=== PATIENT | male | born 1950 | race Caucasian/White ===

== ENCOUNTER → 2017-06-17 | Day surgery (SDC) | payer BC ==
[~2017-06-17] MED LIST: Lactated Ringers 1,000 ML IV SCH; Propofol 200 MG/20 ML SDV IV ONE
--- NOTE | 2017-06-17 14:08 | LETTER ---
Ernie George, [employer] [address] [place] [id number] RE: SHIRLENE GOLDSTEIN Dear Ernie: Mr. Matt Goldstein completed his colonoscopy. He had 3 small polyps; one in the rectum which was very small hyperplastic polyp. He had 2 small polyps in the transverse colon which were more difficult to get at with a snare, so I removed them, for the most part in their entirety with forceps. The appear benign. I will make sure they will send you that pathology. Other than some diverticula everything else looked fine. Operative note will be coming. Thank you for the referral. CORNEL/KIARRA /[id number]
--- NOTE | 2017-06-17 14:08 | OR ---
DATE OF OPERATION: 06/17/2017 PREOPERATIVE DIAGNOSIS: FOLLOWUP POLYPS. POSTOPERATIVE DIAGNOSIS: FOLLOWUP POLYPS. SURGEON: Marcos Perera MD PROCEDURE: FULL-LENGTH COLONOSCOPY WITH POLYP REMOVAL X3. ANESTHESIA: ARSON AND B[employer]B INVESTIGATOR. COMPLICATIONS: None. SPECIMEN: Three separate small tubular adenomas/hyperplastic polyps. FINDINGS: 1. Full-length colonoscopy. 2. Moderate diverticulosis, left-sided colon. 3. Colon polyps all likely hyperplastic. RECOMMENDATIONS: Followup colonoscopy in 4 to 5 years pending path reports. INDICATIONS: Mr. Deal is a 67-year-old, who has prior colonoscopies with polyp removals. He is due for a routine [id number]. DESCRIPTION OF PROCEDURE: The patient was prepped and draped, placed in the left lateral decubitus position. A lubricated Olympus colonoscope was inserted and easily advanced to the cecum. Direct visualization of the ileocecal valve and appendiceal orifice was accomplished. The bowel prep was adequate. Upon withdrawal of the scope, the cecum and ascending colon appeared benign. The patient had a 2 flat tubular adenoma like polyps, deep in the haustral folds near the hepatic flexure, one on the transverse colon side. Both were very difficult to get it with the snare, so we elected to remove them for the most part in their entirety with forceps biopsy x3 at each site. Resolution of bleeding was spontaneous. The rest of the transverse colon was unremarkable. Descending and sigmoid colon was a benign, although patient does have mild to moderate sigmoid diverticular disease without any inflammatory change, there were no further polyps, masses, ulcerations, or bleeding sites. No vascular abnormalities or colitis in the sigmoid colon. The rectal vault was for the most part unremarkable, there was a small hyperplastic polyp in the rectal vault which was removed with forceps in its entirety. Retroflexion showed no perianal lesions although there were some hemorrhoids. Air was suctioned, scope removed without complication. CORNEL/KIARRA /[id number]
== END ==
LOC: CC.SDS 09:53
PROVIDERS: ATTEND Family Medicine
DX: Z12.11 Encounter for screening for malignant neoplasm of colon (principal); D12.3 Benign neoplasm of transverse colon; D12.8 Benign neoplasm of rectum; K57.30 Diverticulosis of large intestine without perforation or abscess without bleeding; M25.521 Pain in right elbow; I10 Essential (primary) hypertension; E78.5 Hyperlipidemia, unspecified; N20.0 Calculus of kidney; N52.9 Male erectile dysfunction, unspecified; Z85.828 Personal history of other malignant neoplasm of skin; Z98.890 Other specified postprocedural states; Z79.899 Other long term (current) drug therapy
CPT/HCPCS: J2704; J7120

== ENCOUNTER → 2022-10-01 | Day surgery (SDC) | payer BC, MEDICARE ==
[~2022-10-01] MED LIST changes: +Ketamine 200 MG/20 ML MDV ONE; +Lidocaine 2% 20 ML MDV ONE; -Propofol 200 MG/20 ML SDV IV ONE; +Propofol 200 MG/20 ML SDV ONE; +fentaNYL 50 MCG/ML SDV ONE
== END ==
LOC: CC.SDS 08:15
PROVIDERS: ATTEND Family Medicine
DX: D12.3 Benign neoplasm of transverse colon (principal); D12.5 Benign neoplasm of sigmoid colon; D12.2 Benign neoplasm of ascending colon; D12.4 Benign neoplasm of descending colon; K57.30 Diverticulosis of large intestine without perforation or abscess without bleeding; K29.50 Unspecified chronic gastritis without bleeding; K29.80 Duodenitis without bleeding; K21.9 Gastro-esophageal reflux disease without esophagitis; E78.5 Hyperlipidemia, unspecified; I10 Essential (primary) hypertension; Z90.49 Acquired absence of other specified parts of digestive tract; Z91.013 Allergy to seafood; Z88.1 Allergy status to other antibiotic agents
CPT/HCPCS: 00813; 43239; 45380; 45385; 87081; 88305; J2704; J3010; J3490; J7120